=== PATIENT | female | born 1990 | race Caucasian/White ===

== ENCOUNTER 2022-06-21 23:56 | Emergency (ER) | payer BC ==
[2022-06-22] MEDS ORDERED: Dexamethasone 10 MG/ML VIAL ONE (00:41)
[2022-06-22] MEDS ORDERED: Ibuprofen 200 MG TAB ONE (00:41)
[2022-06-22] MEDS ORDERED: oFLOXacin 0.3% Opth 5 ML BOT EA EAR SCH (00:45)
[2022-06-22 01:32] LABS: SARS-CoV-2 NAA Rapid Test Not Detected (NotDetected)
== END 2022-06-22 02:00 | disposition home or self-care (01) ==
LOC: CSHERS 23:56
DX: H60.93 Unspecified otitis externa, bilateral (principal); J02.9 Acute pharyngitis, unspecified; J01.90 Acute sinusitis, unspecified; B34.9 Viral infection, unspecified; Z20.822 Contact with and (suspected) exposure to COVID-19
CPT/HCPCS: 99283; J1100

== ENCOUNTER 2023-05-05 15:30 | Emergency (ER) | payer BC ==
[2023-05-05] MEDS ORDERED: Boostrix 0.5 ML (Tdap) VIAL (>/=7 yrs of age) ONE (16:17)
[2023-05-05] MEDS ORDERED: Lidocaine 1% PF 5 ML VIAL ONE (16:17)
[2023-05-05] MEDS ORDERED: Bacitracin 1 PK ONE (18:03)
== END 2023-05-05 18:33 | disposition home or self-care (01) ==
LOC: CSHERS 15:30 → EEVIPCON 15:30 → CSHERS 18:33
DX: S91.021A Laceration with foreign body, right ankle, initial encounter (principal); Z23 Encounter for immunization; W22.09XA Striking against other stationary object, initial encounter
CPT/HCPCS: 10120; 90471; 90715

== ENCOUNTER 2023-05-16 18:20 | Emergency (ER) | payer BC, SELFPAY | END 2023-05-16 20:21 | disposition home or self-care (01) | LOC: CSHERS 18:20 | DX: S81.811D Laceration without foreign body, right lower leg, subsequent encounter (principal); Z33.1 Pregnant state, incidental; X58.XXXD Exposure to other specified factors, subsequent encounter | CPT/HCPCS: 84702; 99283 ==